=== PATIENT | female | born 1955 | race Caucasian/White ===

== ENCOUNTER 2017-04-23 19:01 | Inpatient (IN) ==
[2017-04-23] MEDS ORDERED: 0.9 % Sodium Chloride 500 ML IVC ONE (21:49)
[2017-04-23] MEDS ORDERED: Ondansetron 4 MG/2 ML VIAL IVP PRN (22:18)
[2017-04-23] MEDS ORDERED: Naloxone 0.4 MG/ML INJ IVP PRN (22:18)
[2017-04-23] MEDS ORDERED: *HR* LORazepam 2 MG/ML VIAL IVP PRN (22:27)
[2017-04-23] MEDS ORDERED: Pantoprazole 40 MG in 0.9 % Sodium Chloride 100 ML IVC SCH (22:30)
--- NOTE | 2017-04-23 22:53 | Internal Med History&Physical ---
Date of Encounter: 04/23/17 Time of Encounter: 22:15 Assessment and Plan (1) UGI bleed Current visit: Yes Status: Acute 1. [facility] 2. Will order STAT labs including CBC, coags, chemistries, blood culture, and type and cross. 3. Will transfuse another two units PRBC's and monitor H/H frequently. 4. Will start Protonix gtt. I have a high index of suspicion for ulcer given her chronic use of ASA and Plavix. I have a lower suspicion for variceal bleed. 5. Consult Dr. Goldstein for endoscopy -- already notified and discussed with him. 6. In the event she becomes unstable hemodynamically and/or exhibits further significant bleed, will intubate if necessary (airway protection) and transfer to ICU. However, at the moment, she appears stable. 7. Will start IV antibiotics to cover GI garrett. (2) Acute blood loss anemia Current visit: Yes Status: Acute 1. Supportive measures as above including transfusion of blood products, IVF, protonix drip, frequent monitoring of H/H. (3) Alcohol abuse Current visit: Yes Status: Chronic 1. Discrepancy between patient's and daughter's report of alcohol consumption. 2. Will place on CIWA protocol and start MVI, Folate, and Thiamine in IVF daily. (4) Hypertension Current visit: Yes Status: Chronic 1. Hold home meds for now as she had some hypotension prior to transfer. 2. Resume home meds when clinically appropriate. Qualifiers: Hypertension type: essential hypertension Qualified Code(s): I10 - Essential (primary) hypertension (5) DVT prophylaxis Current visit: Yes Status: Acute 1. EPCD's. Internal Medicine - H&P: HPI Chief complaint: transfer from [facility]; GI bleed Admitted From: Hospital to Hospital Transfer Plans for Post Hospital Care: Home History of present illness: Ms. Moyer is a 61 year old female who was transferred here from [facility] in [place]. She presented to the ER there with complaints of hematemesis and melena. She had some borderline hypotension and tachycardia. Labs revealed patient to have a hemoglobin of 7.1 whereas it was 14 in August of this year. She received 2 units of blood transfusion by the time she arrived here at [facility]. Upon my assessment of the patient, she is tachycardic with a heart rate of about 105. Blood pressure is currently 104/50. She is alert and oriented and provides history. Her and 2 daughters are present and confirm history as well. Patient developed hematemesis 2-3 days ago. She has been having melena ever since. She has never had an ulcer before. She has never had any upper endoscopy. According to patient, she drinks about 1-2 beers per day. However, her daughter states she drinks much more than that. She has never been diagnosed with cirrhosis before and has no history of esophageal varices. She did have a CT scan of her abdomen at [facility], and there was no mention of cirrhosis findings of the liver. She denies any excessive NSAID use. However, she has been on aspirin and Plavix for over 10 years due to a renal artery stent she had placed. She feels a little lightheaded and dizzy, but she denies any chest pain or shortness of breath. She feels better after having received 2 units of blood prior to arrival. I discussed with patient and her family the need to closely monitor her hemodynamics, monitor her hemoglobin closely, and to transfuse her with blood products to stabilize her. In the event she develops a significant GI bleed and/or becomes hemodynamically unstable, I will transfer her to the ICU and intubate her if necessary in order to protect her airway. They all voiced understanding and agreement with the plan. Additionally, I contacted Dr. Misael Goldstein and discussed the case with him. He is on consult and will follow her with us and proceed with upper endoscopy in the appropriate setting. Past Med Surg Social Fam HX - Past Medical History Attestation: Yes The following information was validated with the patient. Source: patient, obtained from family, other ([facility]) Medical history: coronary artery disease, GERD, hypertension Psychiatric history: no psych history - Past Surgical History Surgical History: DAVI/BSO, other (Renal artery stent) - Social History Smoking Status: Former smoker Smokeless Tobacco Status: No Alcohol use: occasionally Drug use: none Current living situation: Home, With Family Activity Level: Independent ambulation Recent Out of Country Travel Within the Last 8 Weeks: No - Additional Family History Additional family history: No FH liver disease and/or ulcers Internal Medicine - H&P: Meds Amlodipine Besylate 10 mg PO DAILY 09/24/16 [History] Atorvastatin [Lipitor] 40 mg PO HS 09/24/16 [History] Cholesteral-Free 1 tab PO DAILY 09/24/16 [History] Clopidogrel [Plavix] 75 mg PO DAILY 09/24/16 [History] Cyanocobalamin (Vitamin B-12) [Vitamin B-12] 500 mcg PO DAILY 09/24/16 [History] Mv,Ca,Iron,Mn/FA/Chol/Vince/PABA [Body, Hair, Skin & Nails Cap] 1 each PO DAILY [History] [place]-3/Dha/Epa/Fish Oil [Fish Oil 1,000 mg Softgel] 1 each PO DAILY 09/24/16 [ History] 3 Allergy/AdvReac Type Severity Reaction Status Date / Time No Known Allergies Allergy Verified 09/24/16 10:19 - Constitutional Constitutional: no chills, no fever(s), no night sweats - EENT Eyes: no blurry vision, no change in vision Ears: no ear pain, no tinnitus Nose, mouth and throat: no nasal congestion, no sinus pressure, no sore throat - Cardiovascular Cardiovascular ROS IM: lightheadedness, no chest pain, no diaphoresis, no dyspnea, no syncope - Respiratory Respiratory: no cough, no dyspnea, no hemoptysis, no chest congestion - Gastrointestinal Gastrointestinal: hematemesis, melena, nausea, vomiting, no abdominal pain, no diarrhea, no dysphagia, no heartburn, no hematochezia - Genitourinary Genitourinary: no dysuria, no flank pain, no hematuria - Musculoskeletal Musculoskeletal ROS IM: no arthralgias, no back pain - Integumentary Integumentary IM: no rash, no jaundice - Neurological Neurological ROS: dizziness, no confusion, no convulsions, no focal weakness - Psychiatric Psychiatric: no anxiety, no depression - Endocrine Endocrine IM: no polydipsia, no polyuria - Hematologic/Lymphatic Hematologic/Lymphatic: no easy bruising, no lymphadenopathy - Allergic/Immunologic Allergic/Immunologic: no wheezing, no GI upset with certain foods - Constitutional Vitals: Temp Pulse Resp BP Pulse Ox 98.4 F 99 17 85/64 97 04/23/17 21:29 04/23/17 21:29 04/23/17 21:29 04/23/17 21:29 04/23/17 21:29 General appearance: Present: cooperative, mild distress (mildly light headed), A &O X 3, pleasant - Head Head exam: Present: atraumatic, normal inspection - Expanded Head Exam Head exam expanded: Absent: abrasion, contusion, general tenderness - Eye Eye exam: Present: EOMI, normal appearance, PERRL. Absent: scleral icterus Pupils: Present: normal accommodation - ENT ENT exam: Present: mucous membranes dry, normal exam - Neck Neck exam general surgery: Present: normal inspection, supple. Absent: full ROM , tenderness - Expanded Neck Exam Neck exam: Absent: carotid bruit - Respiratory Respiratory exam: Present: CTAB. Absent: rales, rhonchi, wheezes - Cardiovascular Cardiovascular exam: Present: RRR, +S1, +S2, tachycardia (HR 105). Absent: diastolic murmur, systolic murmur - GI/Abdominal GI/Abdominal exam: Present: soft. Absent: guarding, hepatomegaly, mass, rebound , splenomegaly, tenderness - Extremities Exam Extremities exam: Present: full ROM, warm, radial pulses palpable and symmetrical. Absent: calf tenderness, normal capillary refill (delayed, roughly 3-4 seconds), pedal edema - Back Exam Back exam: Absent: CVA tenderness (L), CVA tenderness (R) - Neurological Exam Neurological exam: Present: alert, CN II-XII intact, oriented X3, no focal deficits, strengths equal and symetr throughout - Psychiatric Psychiatric exam: Present: flat affect. Absent: anxious - Skin Skin exam: Present: dry, warm. Absent: rash (pink and warm; mildly delayed cap refill) Internal Med - H&P Results - Labs Labs: Labs from [facility] include the following: Sodium 142 Potassium 3.6 Chloride 106 CO2 23 BUN 31 Glucose 125 Creatinine 0.93 Total bilirubin 0.3 AST 21 ALT 29 WBC 12.0 Hemoglobin 7.2 Hematocrit 20.8 Platelet count 372 INR 1.15 PTT 20.4 EKG shows sinus tachycardia with some slight ST depression anterolaterally
[2017-04-23 22:59] LABS: Basophils % 0.2 %; Eosinophils % 0.4 %; Hematocrit 19.2 % (35.3-44.9); Hemoglobin 6.5 g/dL (11.5-15.4); Immature Granulocytes % 0.9 % (0-4); Lymphocytes # 2.3 K/mcL (0.6-4.6); Lymphocytes % 26.8 %; Mean Corpuscular HGB Conc 33.9 g/dL (31.6-35.5); Mean Corpuscular Hemoglobin 31.4 pg (28.0-33.3); Mean Corpuscular Volume 92.8 fL (83.0-100.0); Monocytes # 0.7 K/mcL (0.0-1.3); Monocytes % 8.5 %; Neutrophils # 5.4 K/mcL (1.6-8.9); Nucleated Red Blood Cells 0.7 /100 WBC (0); Platelet Count 187 K/mcL (140-400); Red Blood Count 2.07 M/mcL (3.82-4.97); Red Cell Distribution Width 13.2 % (11.5-14.5); Segmented Neutrophils % 63.2 %
[2017-04-23 23:11] LABS: INR 1.2; Prothrombin Time 12.7 Seconds (9.4-12.1)
[2017-04-23 23:12] LABS: Alanine Aminotransferase 15 Units/L (0-55); Albumin 2.4 g/dL (3.5-5.0); Albumin/Globulin Ratio 1.4 (1.1-2.2); Alkaline Phosphatase 52 Units/L (38-126); Aspartate Amino Transferase 18 Units/L (5-34); BUN/Creatinine Ratio 51 (6-26); Bilirubin,Total 0.2 mg/dL (0.2-1.2); Blood Urea Nitrogen 33 mg/dL (7-20); Calcium 7.1 mg/dL (8.6-10.8); Carbon Dioxide 20 mEq/L (19-29); Chloride 117 mEq/L (98-109); Globulin 1.7 g/dL (2.4-3.5); Glucose 102 mg/dL (70-99); Magnesium 1.2 mg/dL (1.6-2.6); Osmolality,Calculated 303 (280-300); Potassium 3.8 mEq/L (3.5-4.5); Sodium 143 mEq/L (136-145); Total Protein 4.1 g/dL (6.0-8.3); eGFR For African Americans > 60 (> 60); eGFR For Non-African Americans > 60 (> 60)
[2017-04-23 23:13] LABS: Activated Partial Thrombo Time 23.2 Seconds (26.0-36.0)
[2017-04-23] MEDS: MetroNIDAZOLE 500 MG/100 ML 500 MG/100 ML BAG IVPB SCH (23:38)
[2017-04-23] MEDS: Pantoprazole 80 MG in 0.9 % Sodium Chloride 250 ML IVC SCH (23:38)
[2017-04-24] MEDS ORDERED: 0.9 % Sodium Chloride 250 ML ONE ×4 (00:03→13:35)
--- NOTE | 2017-04-24 00:08 | Event Note ---
Date of Encounter: 04/24/17 Time of Encounter: 00:05 Hemoglobin dropped to 6.5 from 7.2 despite receiving 2 units PRBC's. Patient denies any further melena, hematochezia, or hematemsis. Her BP is now 105/55. HR 107. She has a benign abdominal exam. I called and informed Dr. Goldstein. I am transferring patient to ICU for closer monitoring. I called and discussed with ICU nursing staff as well.
--- NOTE | 2017-04-24 00:54 | General Surgery Consult Note ---
Date of Encounter: 04/24/17 Time of Encounter: 00:52 Assessment and Plan (1) Lower GI bleed Current Visit: Yes Status: Acute 61F with acute blood loss anemia 2/2 LGIB; HALFWAY of LGIB is UGIB; still symptomatic, but BP, HR are responding - NPO - IVF - transfuse per primary team - consent for EGD - if negative, then will plan for colonoscopy and/or angio by IR - cont to trend h/h - [place] to track UOP - protonix gtt - hold anticoagulants (2) Acute blood loss anemia Current Visit: Yes Status: Acute see above trend h/h transfuse as needed (3) UGI bleed Current Visit: Yes Status: Acute see above History of Present Illness Consult date: 04/24/17 Reason for consult: other (lower GI bleed) Requesting physician: Richard Parra History of present illness: 61F h/o EtOH abuse who was transferred here from [facility] in [place]. She presented to the ER there with complaints of hematemesis (2-3 days prior to evaluation) and melena for the past 2-3 days. No repots of prior ulcers or diagnosis of cirrhosis, esophageal or gastric varices. he has been on aspirin and Plavix for over 10 years due to a renal artery stent she had placed. According to patient, she drinks about 1-2 beers per day. However, her daughter states she drinks much more than that. She has never had an EGD before. Most recent colonoscopy did not reveal any diverticulosis or masses or polyps. She is currently unstable, on her 3rd PRBC, and most recent hgb is 6.5. Surgery was consulted for management recommendations. Past Med Surg Social Fam HX - Past Medical History Medical history: coronary artery disease, GERD, hypertension Psychiatric history: no psych history - Past Surgical History Surgical History: DAVI/BSO, other (Renal artery stent) - Social History Smoking Status: Former smoker Smokeless Tobacco Status: No Alcohol use: occasionally Drug use: none - Additional Family History Additional family history: non contributor Medications and Allergies Amlodipine Besylate 10 mg PO DAILY 09/24/16 [History] Atorvastatin [Lipitor] 40 mg PO HS 09/24/16 [History] Cholesteral-Free 1 tab PO DAILY 09/24/16 [History] Clopidogrel [Plavix] 75 mg PO DAILY 09/24/16 [History] Cyanocobalamin (Vitamin B-12) [Vitamin B-12] 500 mcg PO DAILY 09/24/16 [History] Mv,Ca,Iron,Mn/FA/Chol/Vince/PABA [Body, Hair, Skin & Nails Cap] 1 each PO DAILY [History] [place]-3/Dha/Epa/Fish Oil [Fish Oil 1,000 mg Softgel] 1 each PO DAILY 09/24/16 [ History] 3 Allergy/AdvReac Type Severity Reaction Status Date / Time No Known Allergies Allergy Verified 09/24/16 10:19 Review of Systems All systems PM: A 10-system review of systems was performed and is negative for pertinent findings except as documented above in the HPI. General Surgery Exam Initial Vital Signs Temp Pulse Resp BP 98.8 F 113 14 91/52 04/23/17 00:00 04/23/17 00:00 04/23/17 00:00 04/23/17 00:00 - General physical appearance well developed, well nourished, no distress - Eyes pale - ENT normocephalic - Respiratory normal expansion, normal respiratory effort - Cardiovascular Cardiovascular exam: Present: RRR, tachycardia - Abdomen Abdomen general surgery: Present: bowel sounds present, soft, non tender, tender (non peritoneal, only mildly tender palpation) Abdominal Tenderness: Present: suprapubic Hernia: Present: none - Rectum Rectum: Present: normal sphincter tone, no hemorrhoids, no tenderness, no masses , other (dark residue; no bright red blood) - Integumentary Integumentary general surgery: Present: warm and dry - Neurologic Present: CN 2-12 grossly intact - Psychiatric Psychiatric general surgery: Present: A&Ox3 Exam Initial Vital Signs Temp Pulse Resp BP 98.8 F 113 14 91/52 04/23/17 00:00 04/23/17 00:00 04/23/17 00:00 04/23/17 00:00 Results - Labs 04/23/17 22:45 04/23/17 22:45 Abnormal lab results RBC 2.07 M/mcL (3.82-4.97) L 04/23/17 22:45 Hgb 6.5 g/dL (11.5-15.4) L 04/23/17 22:45 Hct 19.2 % (35.3-44.9) L 04/23/17 22:45 MPV 9.0 fL (9.4-12.4) L 04/23/17 22:45 Nucleated RBCs/100 WBC 0.7 /100 WBC (0) H 04/23/17 22:45 PT 12.7 Seconds (9.4-12.1) H 04/23/17 22:45 APTT 23.2 Seconds (26.0-36.0) L 04/23/17 22:45 Chloride 117 mEq/L (98-109) H 04/23/17 22:45 BUN 33 mg/dL (7-20) H 04/23/17 22:45 BUN/Creatinine Ratio 51 (6-26) H 04/23/17 22:45 Glucose 102 mg/dL (70-99) H 04/23/17 22:45 Calculated Osmolality 303 (280-300) H 04/23/17 22:45 Calcium 7.1 mg/dL (8.6-10.8) L 04/23/17 22:45 Magnesium 1.2 mg/dL (1.6-2.6) L 04/23/17 22:45 Serum Total Protein 4.1 g/dL (6.0-8.3) L 04/23/17 22:45 Albumin 2.4 g/dL (3.5-5.0) L 04/23/17 22:45 Globulin 1.7 g/dL (2.4-3.5) L 04/23/17 22:45 Diabetes panel 04/23/17 Range/Units 22:45 Sodium 143 (136-145) mEq/L Potassium 3.8 (3.5-4.5) mEq/L Chloride 117 H (98-109) mEq/L Carbon Dioxide 20 (19-29) mEq/L BUN 33 H (7-20) mg/dL Creatinine 0.65 (0.57-1.11) mg/dL Glucose 102 H (70-99) mg/dL Calcium 7.1 L (8.6-10.8) mg/dL AST 18 (5-34) Units/L ALT 15 (0-55) Units/L Alkaline Phosphatase 52 (38-126) Units/L Albumin 2.4 L (3.5-5.0) g/dL Calcium panel 04/23/17 Range/Units 22:45 Calcium 7.1 L (8.6-10.8) mg/dL Albumin 2.4 L (3.5-5.0) g/dL Pituitary panel 04/23/17 Range/Units 22:45 Sodium 143 (136-145) mEq/L Potassium 3.8 (3.5-4.5) mEq/L Chloride 117 H (98-109) mEq/L Carbon Dioxide 20 (19-29) mEq/L BUN 33 H (7-20) mg/dL Creatinine 0.65 (0.57-1.11) mg/dL Glucose 102 H (70-99) mg/dL Calcium 7.1 L (8.6-10.8) mg/dL Adrenal panel 04/23/17 Range/Units 22:45 Sodium 143 (136-145) mEq/L Potassium 3.8 (3.5-4.5) mEq/L Chloride 117 H (98-109) mEq/L Carbon Dioxide 20 (19-29) mEq/L BUN 33 H (7-20) mg/dL Creatinine 0.65 (0.57-1.11) mg/dL Glucose 102 H (70-99) mg/dL Calcium 7.1 L (8.6-10.8) mg/dL Total Bilirubin 0.2 (0.2-1.2) mg/dL AST 18 (5-34) Units/L ALT 15 (0-55) Units/L Alkaline Phosphatase 52 (38-126) Units/L Albumin 2.4 L (3.5-5.0) g/dL All other labs normal. Consult Discharge Plan - Plan Referrals: Miri Lo, HERNANDO [Primary Care Provider] -
[2017-04-24] MEDS ORDERED: *HR* Midazolam HCl 5 MG/5 ML VIAL IVP ONE ×2 (01:20→01:40)
[2017-04-24] MEDS ORDERED: *HR* FentaNYL (PF) 100 MCG/2 ML VIAL ONE ×2 (01:21→01:29)
[2017-04-24] MEDS ORDERED: *HR* FentaNYL (PF) 100 MCG/2 ML VIAL IVP ONE (01:40)
--- NOTE | 2017-04-24 02:27 | Pre-Sedation Evaluation ---
Pre-sedation evaluation - Pre-sedation checklist Date of procedure: 04/24/17 Procedure: egd Recent Vitals: Last Vital Signs Temp 98.9 F 04/24/17 00:34 Pulse 111 04/24/17 02:00 Resp 12 04/24/17 02:00 BP 102/57 04/24/17 02:00 Pulse Ox 96 04/24/17 02:00 H&P (including ROS) documented in medical record: Yes Previous reaction to sedatives/anesthetics: Unknown Dietary Status: NPO 6 hours prior to procedure Dentition: No loose teeth or bridges Possible difficult airway: No ASA Classification *see protocol: CLASS III-Severe systemic disease
--- NOTE | 2017-04-24 02:32 | General Surgery Consult Note ---
Date of Encounter: 04/24/17 Time of Encounter: 02:30 Assessment and Plan (1) Lower GI bleed Current Visit: Yes Status: Acute (2) Acute blood loss anemia Current Visit: Yes Status: Acute (3) UGI bleed Current Visit: Yes Status: Acute Past Med Surg Social Fam HX - Past Medical History Medical history: coronary artery disease, GERD, hypertension Psychiatric history: no psych history - Past Surgical History Surgical History: DAVI/BSO, other (Renal artery stent) - Social History Smoking Status: Former smoker Smokeless Tobacco Status: No Alcohol use: occasionally Drug use: none Medications and Allergies Amlodipine Besylate 10 mg PO DAILY 09/24/16 [History] Atorvastatin [Lipitor] 40 mg PO HS 09/24/16 [History] Cholesteral-Free 1 tab PO DAILY 09/24/16 [History] Clopidogrel [Plavix] 75 mg PO DAILY 09/24/16 [History] Cyanocobalamin (Vitamin B-12) [Vitamin B-12] 500 mcg PO DAILY 09/24/16 [History] Mv,Ca,Iron,Mn/FA/Chol/Vince/PABA [Body, Hair, Skin & Nails Cap] 1 each PO DAILY [History] [place]-3/Dha/Epa/Fish Oil [Fish Oil 1,000 mg Softgel] 1 each PO DAILY 09/24/16 [ History] 3 Allergy/AdvReac Type Severity Reaction Status Date / Time No Known Allergies Allergy Verified 09/24/16 10:19 Review of Systems All systems PM: A 10-system review of systems was performed and is negative for pertinent findings except as documented above in the HPI. General Surgery Exam Initial Vital Signs Temp Pulse Resp BP 98.8 F 113 14 91/52 04/23/17 00:00 04/23/17 00:00 04/23/17 00:00 04/23/17 00:00 Exam Initial Vital Signs Temp Pulse Resp BP 98.8 F 113 14 91/52 04/23/17 00:00 04/23/17 00:00 04/23/17 00:00 04/23/17 00:00 Results - Labs 04/23/17 22:45 04/23/17 22:45 Abnormal lab results RBC 2.07 M/mcL (3.82-4.97) L 04/23/17 22:45 Hgb 6.5 g/dL (11.5-15.4) L 04/23/17 22:45 Hct 19.2 % (35.3-44.9) L 04/23/17 22:45 MPV 9.0 fL (9.4-12.4) L 04/23/17 22:45 Nucleated RBCs/100 WBC 0.7 /100 WBC (0) H 04/23/17 22:45 PT 12.7 Seconds (9.4-12.1) H 04/23/17 22:45 APTT 23.2 Seconds (26.0-36.0) L 04/23/17 22:45 Chloride 117 mEq/L (98-109) H 04/23/17 22:45 BUN 33 mg/dL (7-20) H 04/23/17 22:45 BUN/Creatinine Ratio 51 (6-26) H 04/23/17 22:45 Glucose 102 mg/dL (70-99) H 04/23/17 22:45 POC Glucose 103 (58-89) H 04/24/17 00:58 Calculated Osmolality 303 (280-300) H 04/23/17 22:45 Calcium 7.1 mg/dL (8.6-10.8) L 04/23/17 22:45 Magnesium 1.2 mg/dL (1.6-2.6) L 04/23/17 22:45 Serum Total Protein 4.1 g/dL (6.0-8.3) L 04/23/17 22:45 Albumin 2.4 g/dL (3.5-5.0) L 04/23/17 22:45 Globulin 1.7 g/dL (2.4-3.5) L 04/23/17 22:45 Diabetes panel 04/23/17 Range/Units 22:45 Sodium 143 (136-145) mEq/L Potassium 3.8 (3.5-4.5) mEq/L Chloride 117 H (98-109) mEq/L Carbon Dioxide 20 (19-29) mEq/L BUN 33 H (7-20) mg/dL Creatinine 0.65 (0.57-1.11) mg/dL Glucose 102 H (70-99) mg/dL Calcium 7.1 L (8.6-10.8) mg/dL AST 18 (5-34) Units/L ALT 15 (0-55) Units/L Alkaline Phosphatase 52 (38-126) Units/L Albumin 2.4 L (3.5-5.0) g/dL Calcium panel 04/23/17 Range/Units 22:45 Calcium 7.1 L (8.6-10.8) mg/dL Albumin 2.4 L (3.5-5.0) g/dL Pituitary panel 04/23/17 Range/Units 22:45 Sodium 143 (136-145) mEq/L Potassium 3.8 (3.5-4.5) mEq/L Chloride 117 H (98-109) mEq/L Carbon Dioxide 20 (19-29) mEq/L BUN 33 H (7-20) mg/dL Creatinine 0.65 (0.57-1.11) mg/dL Glucose 102 H (70-99) mg/dL Calcium 7.1 L (8.6-10.8) mg/dL Adrenal panel 04/23/17 Range/Units 22:45 Sodium 143 (136-145) mEq/L Potassium 3.8 (3.5-4.5) mEq/L Chloride 117 H (98-109) mEq/L Carbon Dioxide 20 (19-29) mEq/L BUN 33 H (7-20) mg/dL Creatinine 0.65 (0.57-1.11) mg/dL Glucose 102 H (70-99) mg/dL Calcium 7.1 L (8.6-10.8) mg/dL Total Bilirubin 0.2 (0.2-1.2) mg/dL AST 18 (5-34) Units/L ALT 15 (0-55) Units/L Alkaline Phosphatase 52 (38-126) Units/L Albumin 2.4 L (3.5-5.0) g/dL All other labs normal. Procedures: General Surgery - Central Line Placement Left SC Consent obtained: written consent (from daughters) Time out performed: Yes Patient placed on monitor/pulse ox: Yes prep: mask, gown, gloves Central line prep: Chlorhexidine scrub, sterile drapes applied Local anesthesia used: Lidocaine 1% Ultrasound used for placement: No Technique: Seldinger Central line lumen inserted: triple Post Procedure: sutured in place, good blood return, all ports aspirated, flushed, capped, sterile dressing applied, infection control done at entry site Post procedure x-ray: tip of catheter in good position, no pneumothorax seen Patient tolerated procedure: well Complications: none Consult Discharge Plan - Plan Referrals: Miri Lo CNP [Primary Care Provider] -
[2017-04-24] MEDS: Pantoprazole 80 MG in 0.9 % Sodium Chloride 250 ML IVC SCH ×2 (06:02→17:48)
[2017-04-24 06:06] LABS: Basophils % 0.5 %; Eosinophils # 0.1 K/mcL (0.0-0.6); Eosinophils % 1.6 %; Hematocrit 23.1 % (35.3-44.9); Hemoglobin 7.7 g/dL (11.5-15.4); Immature Granulocytes % 0.9 % (0-4); Lymphocytes # 1.7 K/mcL (0.6-4.6); Lymphocytes % 20.5 %; Mean Corpuscular HGB Conc 33.3 g/dL (31.6-35.5); Mean Corpuscular Volume 89.9 fL (83.0-100.0); Mean Platelet Volume 9.2 fL (9.4-12.4); Monocytes # 0.8 K/mcL (0.0-1.3); Monocytes % 9.8 %; Neutrophils # 5.7 K/mcL (1.6-8.9); Nucleated Red Blood Cells 0.9 /100 WBC (0); Platelet Count 142 K/mcL (140-400); Red Blood Count 2.57 M/mcL (3.82-4.97); Red Cell Distribution Width 14.3 % (11.5-14.5); Segmented Neutrophils % 66.7 %
[2017-04-24] MEDS: MetroNIDAZOLE 500 MG/100 ML 500 MG/100 ML BAG IVPB SCH (07:44)
--- NOTE | 2017-04-24 08:30 | Internal Med Progress Note ---
Date of Encounter: 04/24/17 Time of Encounter: 08:26 - Assessment and plan (1) UGI bleed Current Visit: Yes Status: Acute Assessment and plan: s/p EGD showed Duodenal ulcer will f/u on biopsy Held ASA and Plavix for now Cont Protonix gtt for another day started on PO Carafate cont close monitoring of H /H Surgery Dr. Goldstein on board No colonoscopy at this point Reviewed CT of abd / Pelvis from [facility].. No signs of Colitis / infections So will stop abx Medically stable to transfer to [facility] (2) Duodenal ulcer Current Visit: Yes Status: Acute Assessment and plan: on PPI GTT ON Carafate (3) Acute blood loss anemia Current Visit: Yes Status: Acute Assessment and plan: Hb still @ 7.7 after 4 U PRBC will give another unit cont close monitoring check Iron studies (4) Alcohol dependence Current Visit: Yes Status: Acute Assessment and plan: Cont close monitoring on CIWA Ativan PRN Thiamine / Folic daily Qualifiers: Qualified Code(s): F10.20 - Alcohol dependence, uncomplicated (5) Hypertension Current Visit: Yes Status: Chronic Assessment and plan: resume home medications Qualifiers: Hypertension type: essential hypertension Qualified Code(s): I10 - Essential (primary) hypertension (6) DVT prophylaxis Current Visit: Yes Status: Acute Assessment and plan: on SCD's only - Subjective Interval history: Ms. Moyer is a 61 year old female with known chronic alcohol dependence, CAD , GERD, HTN, takes ASA and Plavix for renal artery stent now she presented to [facility] in [place] with Melena and dark colored stools. She did go for emergent EGD y/d which showed non bleeding duodenal ulcer with adherent clot. She recieved 4 U PRBC sof ar, Hb still @ 7.7 Still c/o feelng weak and lethargic . Denied any CP / SOB. c/o Light headedness and dizzy. No abd pain. No BM since last night - Constitutional Vitals: Temp Pulse Resp BP Pulse Ox 97.9 F 101 18 93/59 95 04/24/17 07:31 04/24/17 07:00 04/24/17 07:00 04/24/17 07:00 04/24/17 07:00 General appearance: Present: cooperative, A&O X 3, pleasant - Head Head exam: Present: atraumatic, normal inspection - Neck Neck exam general surgery: Present: supple - Respiratory Respiratory exam: Present: decreased breath sounds. Absent: rales, respiratory distress, rhonchi, wheezes - Cardiovascular Cardiovascular exam: Present: RRR, +S1, +S2 - GI/Abdominal GI/Abdominal exam: Present: hypoactive bowel sounds, soft. Absent: distended, rebound, rigid, tenderness - Extremities Exam Extremities exam: Absent: calf tenderness, pedal edema, tenderness - Back Exam Back exam: Absent: CVA tenderness (L), CVA tenderness (R) - Neurological Exam Neurological exam: Present: alert, oriented X3 - Psychiatric Psychiatric exam: Present: depressed Internal Medicine: Result - Labs CBC & Chem 7: 04/24/17 05:50 04/23/17 22:45 Labs: Short CBC 04/23/17 04/24/17 Range/Units 22:45 05:50 WBC 8.6 8.5 (4.3-11.1) K/mcL Hgb 6.5 L 7.7 L (11.5-15.4) g/dL Hct 19.2 L 23.1 L (35.3-44.9) % Plt Count 187 142 (140-400) K/mcL Neutrophils # 5.4 5.7 (1.6-8.9) K/mcL BMP 04/23/17 22:45 Sodium 143 Potassium 3.8 Chloride 117 H Carbon Dioxide 20 BUN 33 H Creatinine 0.65 Glucose 102 H Calcium 7.1 L Liver Function 04/23/17 Range/Units 22:45 Total Bilirubin 0.2 (0.2-1.2) mg/dL AST 18 (5-34) Units/L ALT 15 (0-55) Units/L Alkaline Phosphatase 52 (38-126) Units/L Albumin 2.4 L (3.5-5.0) g/dL - ABG Interpretation ABG results: PT/INR, D-dimer PT 12.7 Seconds (9.4-12.1) H 04/23/17 22:45 - Impressions Impressions Chest X-Ray 04/24/17 02:19 IMPRESSION: Right subclavian central line in place, tip in right atrium, could be withdrawn 3 cm. D/ / Adilson Prado MD / Adilson Prado MD Interpreting Provider: Adilson Prado MD Consult Discharge Plan - Plan Referrals: Miri Lo CNP [Primary Care Provider] -
[2017-04-24] MEDS: Sucralfate 1 GM TABLET PO SCH ×4 (09:24→21:17)
--- NOTE | 2017-04-24 11:43 | General Surgery Progress Note ---
Date of Encounter: 04/24/17 Time of Encounter: 11:41 - Assessment and Plan (1) Duodenal ulcer with hemorrhage Current Visit: Yes Status: Acute 61F with acute blood loss anemia 2/2 bleeding duodenal ulcer visualized on EGD ; adherent clot, non oozing/bleeding no intervention performed; currently stablizing with hct, HR, BP wnl; - trend h/h - transfuse PRN - keep in ICU until she is stable protonix gtt treat propylactically for H. pylori - diet per primary team - no acute surgery at present (2) Lower GI bleed Current Visit: Yes Status: Acute 61F with acute blood loss anemia 2/2 bleeding duodenal ulcer visualized on EGD ; adherent clot, non oozing/bleeding no intervention performed; currently stablizing with hct, HR, BP wnl; - trend h/h - transfuse PRN - keep in ICU until she is stable - no acute surgery at present (3) Acute blood loss anemia Current Visit: Yes Status: Acute see above trend h/h transfuse as needed (4) UGI bleed Current Visit: Yes Status: Acute see above Subjective Patient reports: no new complaints, feels better Objective Vital Signs - Last 8 Hours Temp Pulse Resp BP Pulse Ox 04/24/17 10:29 99.0 F 110 16 94/62 97 04/24/17 10:14 98.5 F 101 16 95/47 97 04/24/17 10:00 103 16 95/47 96 04/24/17 09:00 101 16 97/45 95 04/24/17 08:00 103 16 100/47 95 04/24/17 07:31 97.9 F 04/24/17 07:00 101 18 93/59 95 04/24/17 06:00 99 13 103/67 96 04/24/17 04:56 98 14 95/58 99 04/24/17 03:45 98.7 F 103 12 102/54 98 Intake and Output 04/23/17 04/24/17 04/24/17 23:59 07:59 15:59 Intake Total 0 / 0 1250 / 1250 100 / 100 Output Total 0 / 0 225 / 225 Balance 0 / 0 1025 / 1025 100 / 100 Intake: IV Fluids 550 / 550 100 / 100 Protonix 80 MG In 0.9 % Sodium 250 / 250 Chloride 250 ML @ 8 MG/HR 25 mls/hr IVC .Q10H [facility] Rx#: [id number] Cipro Premix 400 MG/200 ML 400 200 / 200 mg In 200 ml @ 200 mls/hr IVPB Q12HR [facility] Rx#:[id number] Flagyl Premix 500 MG/100 ML 500 100 / 100 100 / 100 mg In 100 ml @ 100 mls/hr IVPB Q8HR [facility] Rx#:[id number] Oral 0 / 0 Blood Product 700 / 700 0 / 0 Rbcs Leuko Poor As-1 Unit 350 / 350 [id number] Rbcs Leuko Poor As-1 Unit 350 / 350 [id number] Rbcs Leuko Poor As-1 Unit 0 / 0 [id number] Output: Urine 0 / 0 200 / 200 Urethral ([place]) 200 / 200 Catheter 25 / 25 Other: Stool Size Small Copious Stool Consistency liquid loose Stool Color Green Black Black # Bowel Movements 1 Weight 71.1 kg - General physical appearance well developed, well nourished - Eyes normal ocular movement - Respiratory normal expansion, normal respiratory effort - Cardiovascular Cardiovascular exam: Present: RRR - Abdomen Abdomen: Present: soft, non tender - Neurologic CN 2-12 grossly intact - Psychiatric oriented to time, oriented to person, oriented to place - Labs 04/24/17 05:50 04/23/17 22:45 Diabetes panel 04/23/17 Range/Units 22:45 Sodium 143 (136-145) mEq/L Potassium 3.8 (3.5-4.5) mEq/L Chloride 117 H (98-109) mEq/L Carbon Dioxide 20 (19-29) mEq/L BUN 33 H (7-20) mg/dL Creatinine 0.65 (0.57-1.11) mg/dL Glucose 102 H (70-99) mg/dL Calcium 7.1 L (8.6-10.8) mg/dL AST 18 (5-34) Units/L ALT 15 (0-55) Units/L Alkaline Phosphatase 52 (38-126) Units/L Albumin 2.4 L (3.5-5.0) g/dL Calcium panel 04/23/17 Range/Units 22:45 Calcium 7.1 L (8.6-10.8) mg/dL Albumin 2.4 L (3.5-5.0) g/dL Pituitary panel 04/23/17 Range/Units 22:45 Sodium 143 (136-145) mEq/L Potassium 3.8 (3.5-4.5) mEq/L Chloride 117 H (98-109) mEq/L Carbon Dioxide 20 (19-29) mEq/L BUN 33 H (7-20) mg/dL Creatinine 0.65 (0.57-1.11) mg/dL Glucose 102 H (70-99) mg/dL Calcium 7.1 L (8.6-10.8) mg/dL Adrenal panel 04/23/17 Range/Units 22:45 Sodium 143 (136-145) mEq/L Potassium 3.8 (3.5-4.5) mEq/L Chloride 117 H (98-109) mEq/L Carbon Dioxide 20 (19-29) mEq/L BUN 33 H (7-20) mg/dL Creatinine 0.65 (0.57-1.11) mg/dL Glucose 102 H (70-99) mg/dL Calcium 7.1 L (8.6-10.8) mg/dL Total Bilirubin 0.2 (0.2-1.2) mg/dL AST 18 (5-34) Units/L ALT 15 (0-55) Units/L Alkaline Phosphatase 52 (38-126) Units/L Albumin 2.4 L (3.5-5.0) g/dL Consult Discharge Plan - Plan Referrals: Miri Lo, DIRECTOR OF RECREATION THERAPY [Primary Care Provider] -
[2017-04-24] MEDS: Thiamine (B-1) 100 MG, Folic Acid 1 MG, MVI, adult with vitamin K 10 ML in 0.9 % Sodi... IVPB SCH (17:12)
[2017-04-24 22:41] LABS: Hematocrit 25.9 % (35.3-44.9); Hemoglobin 8.7 g/dL (11.5-15.4)
[2017-04-25] MEDS: Pantoprazole 80 MG in 0.9 % Sodium Chloride 250 ML IVC SCH (04:18)
[2017-04-25 05:32] LABS: Basophils % 0.6 %; Eosinophils # 0.4 K/mcL (0.0-0.6); Eosinophils % 6.1 %; Hematocrit 26.2 % (35.3-44.9); Hemoglobin 8.7 g/dL (11.5-15.4); Lymphocytes # 1.9 K/mcL (0.6-4.6); Lymphocytes % 28.2 %; Mean Corpuscular HGB Conc 33.2 g/dL (31.6-35.5); Mean Corpuscular Hemoglobin 29.2 pg (28.0-33.3); Mean Corpuscular Volume 87.9 fL (83.0-100.0); Mean Platelet Volume 9.3 fL (9.4-12.4); Monocytes # 0.5 K/mcL (0.0-1.3); Monocytes % 7.3 %; Neutrophils # 3.8 K/mcL (1.6-8.9); Nucleated Red Blood Cells 0.6 /100 WBC (0); Platelet Count 140 K/mcL (140-400); Red Blood Count 2.98 M/mcL (3.82-4.97); Red Cell Distribution Width 15.5 % (11.5-14.5); Segmented Neutrophils % 56.8 %
[2017-04-25 06:58] LABS: % Iron Saturation 14 % (15-50); Iron 25 mcg/dL (50-170); Transferrin 124 mg/dL (180-382)
[2017-04-25] MEDS: Sucralfate 1 GM TABLET PO SCH ×4 (08:56→22:21)
[2017-04-25] MEDS ORDERED: 0.9 % Sodium Chloride 500 ML IVC ONE (11:16)
[2017-04-25] MEDS ORDERED: *HR* LORazepam 2 MG/ML VIAL IVP PRN (11:18)
--- NOTE | 2017-04-25 11:26 | General Surgery Progress Note ---
<Kendrick Harper - Last Filed: 04/25/17 11:34> Date of Encounter: 04/25/17 Time of Encounter: 10:15 - Assessment and Plan (1) Duodenal ulcer with hemorrhage Current Visit: Yes Status: Acute Patient initially presented to the ER with the complaint of hematemesis and melena of 3 days' duration. Upper endoscopy was performed on 04/24/17 and demonstrated the followin nonbleeding duodenal ulcer present with adherent clot. No samples were collected. Suspicious for H. pylori induced etiology. No evidence of perforation. Recommendation per Dr. Quezada: Admit to ICU for ongoing care. Plan: -Trend H&H. Patient's hemoglobin has remained stable since yesterday. -On 04/24/17, patient's hemoglobin was 8.7. -On 04/25/17, patient's hemoglobin was 8.7. -Transfuse when necessary. -Patient denies having any weakness or dizziness. -Continuous cardiac monitoring. -Treated prophylactically for H. pylori. -H. pylori antigen test has been ordered. -Diet per primary team. (2) Lower GI bleed Current Visit: Yes Status: Acute Patient presented to the hospital with the complaint of melena 3 days duration. This morning, patient states that she had one bowel movement. The same black , tarry appearance. Denies having any weakness. -Patient may need colonoscopy. -She reports her last colonoscopy was a few months ago and that no abnormalities were found. (3) Acute blood loss anemia Current Visit: Yes Status: Acute Subjective Patient reports: feels better, blood in stool Narrative: Patient was seen and examined subsequently. Patient states that she did have a bowel movement this morning. It was dark in color, similar to the black tarry stools that she has been having for the last 2-3 days. She denies having any hematemesis. She currently denies having abdominal pain. She denies fever, chills, weakness, dizziness, and lightheadedness. Objective Vital Signs - Last 8 Hours Temp Pulse Resp BP Pulse Ox 04/25/17 10:19 98.3 F 86 14 92/55 97 04/25/17 09:19 98.4 F 82 16 108/69 98 04/25/17 06:46 97.9 F 85 18 101/60 94 04/25/17 05:00 98.5 F 90 16 101/55 96 Intake and Output 04/24/17 04/25/17 04/25/17 23:59 07:59 15:59 Intake Total 1111.2 / 1111.2 250 / 250 0 / 0 Output Total 0 / 0 300 / 300 100 / 100 Balance 1111.2 / 1111.2 -50 / -50 -100 / -100 Intake: IV Fluids 761.2 / 761.2 250 / 250 Protonix 80 MG In 0.9 % Sodium 250 / 250 250 / 250 Chloride 250 ML @ 8 MG/HR 25 mls/hr IVC .Q10H [facility] Rx#: [id number] Vitamin B-1 100 MG Folvite 1 MG 511.2 / 511.2 M.v.i. Adult 10 ml In 0.9 % Sodium Chloride 500 ML @ 85.2 mls/hr IVPB DAILY@1800 [facility] Rx#: [id number] Oral 0 / 0 0 / 0 Blood Product 350 / 350 Rbcs Leuko Poor As-1 Unit 350 / 350 [id number] Output: Urine 0 / 0 300 / 300 100 / 100 Other: Meal NPO NPO Percent of Meal Consumed 0% Stool Size Small Stool Consistency soft Stool Color Dark Red Blood # Voids 1 1 # Bowel Movements 1 Blood Glucose* 89 98 98 - General physical appearance well developed, well nourished, no distress - Neck Neck exam: no masses, trachea midline, no lymphadectomy - Respiratory normal expansion, normal respiratory effort, clear to auscultation - Cardiovascular Cardiovascular exam: Present: RRR, no murmurs/rubs/gallops - Abdomen Abdomen: Present: bowel sounds present, soft, non tender - Psychiatric oriented to time, oriented to person, oriented to place, speech is normal, memory intact - Labs 04/25/17 05:24 04/23/17 22:45 Consult Discharge Plan - Plan Referrals: Miri Lo CNP [Primary Care Provider] - <Kimberlee Young - Last Filed: 04/25/17 16:59> Date of Encounter: 04/25/17 - Assessment and Plan (1) Acute blood loss anemia Current Visit: Yes Status: Acute Hb stable last 24 hrs continue to monitor (2) Duodenal ulcer with hemorrhage Current Visit: Yes Status: Acute check stool for H pylori continue PPI therapy and carafate advance diet as tolerate Subjective Narrative: patient reports no upper abdominal pain, no nausea still passing somewhat black stools tolerating clears Objective Vital Signs - Last 8 Hours Temp Pulse Resp BP Pulse Ox 04/25/17 14:55 98.4 F 91 14 107/55 100 04/25/17 10:19 98.3 F 86 14 92/55 97 04/25/17 09:19 98.4 F 82 16 108/69 98 Intake and Output 04/25/17 04/25/17 04/25/17 07:59 15:59 23:59 Intake Total 250 / 250 240 / 240 Output Total 300 / 300 100 / 100 Balance -50 / -50 140 / 140 Intake: IV Fluids 250 / 250 Protonix 80 MG In 0.9 % Sodium 250 / 250 Chloride 250 ML @ 8 MG/HR 25 mls/hr IVC .Q10H [facility] Rx#: [id number] Oral 240 / 240 Output: Urine 300 / 300 100 / 100 Other: Meal Clears Stool Size Small Stool Consistency soft Stool Color Dark Red Blood # Voids 1 1 # Bowel Movements 1 Blood Glucose* 98 98 - General physical appearance well developed, well nourished, no distress - Eyes PERRL, normal ocular movement - ENT normal mucosa, normocephalic - Neck Neck exam: trachea midline - Respiratory normal expansion, normal respiratory effort - Cardiovascular Cardiovascular exam: Present: RRR - Abdomen Abdomen: Present: soft, non tender. Absent: distended - Integumentary no rash, no growths - Neurologic CN 2-12 grossly intact - Musculoskeletal normal posture - Psychiatric oriented to time, oriented to person, oriented to place, memory intact - Labs 04/25/17 14:20 04/23/17 22:45 - Attending Attestation I examined this patient and my medical decision-making was reviewed with the Resident Physician. I agree with the documented findings, disposition and treatment plan as described except to the extent set forth below.
[2017-04-25] MEDS ORDERED: D5% in 0.45% NACL 1,000 ML IVC SCH ×2 (11:30→16:36)
[2017-04-25] MEDS: *HR* LORazepam 0.5 MG TABLET PO PRN ×2 (12:59→22:22)
[2017-04-25] MEDS: Pantoprazole 40 MG VIAL IVP SCH ×2 (12:59→17:25)
[2017-04-25 14:31] LABS: Hematocrit 24.7 % (35.3-44.9); Hemoglobin 8.3 g/dL (11.5-15.4)
--- NOTE | 2017-04-25 16:41 | Internal Med Progress Note ---
Date of Encounter: 04/25/17 Time of Encounter: 10:30 - Assessment and plan (1) UGI bleed Current Visit: Yes Status: Acute Assessment and plan: s/p EGD showed Duodenal ulcer will f/u on biopsy Held ASA and Plavix for now Switched to Protonix 40mg IV BID Cont PO Carafate cont close monitoring of H /H Started on Clear liquid diet today Surgery on board No colonoscopy at this point Reviewed CT of abd / [facility] from [facility].. No signs of Colitis / infections d/c abx (2) Duodenal ulcer Current Visit: Yes Status: Acute Assessment and plan: on PPI BID ON Carafate (3) Acute blood loss anemia Current Visit: Yes Status: Acute Assessment and plan: Hb stable @ 8.4 cont close monitoring Reviewed Iron studies. severely low Iron started on Iron supplements (4) Alcohol dependence Current Visit: Yes Status: Acute Assessment and plan: Cont close monitoring on CIWA Ativan PRN Thiamine / Folic daily Qualifiers: Qualified Code(s): F10.20 - Alcohol dependence, uncomplicated (5) Hypertension Current Visit: Yes Status: Chronic Assessment and plan: resume home medications Qualifiers: Hypertension type: essential hypertension Qualified Code(s): I10 - Essential (primary) hypertension (6) DVT prophylaxis Current Visit: Yes Status: Acute Assessment and plan: on SCD's only - Subjective Interval history: Ms. Moyer is a 61 year old female with known chronic alcohol dependence, CAD , GERD, HTN, takes ASA and Plavix for renal artery stent now she presented to [facility] in [place] with Melena and dark colored stools. She did go for emergent EGD y/d which showed non bleeding duodenal ulcer with adherent clot. She is still on NPO. c/o Light headedness and dizzy. No abd pain. Had a BM last night dark colored stools. Denied any CP / SOB - Constitutional Vitals: Temp Pulse Resp BP Pulse Ox 98.4 F 91 14 107/55 100 04/25/17 14:55 04/25/17 14:55 04/25/17 14:55 04/25/17 14:55 04/25/17 14:55 General appearance: Present: cooperative, A&O X 3, no acute distress - Head Head exam: Present: atraumatic, normal inspection - Neck Neck exam general surgery: Present: supple - Respiratory Respiratory exam: Present: decreased breath sounds. Absent: rales, respiratory distress, rhonchi, wheezes - Cardiovascular Cardiovascular exam: Present: RRR, +S1, +S2. Absent: systolic murmur - GI/Abdominal GI/Abdominal exam: Present: normal bowel sounds, soft. Absent: distended, rebound, rigid, tenderness - Extremities Exam Extremities exam: Absent: calf tenderness, pedal edema, tenderness - Back Exam Back exam: Absent: CVA tenderness (L), CVA tenderness (R) - Psychiatric Psychiatric exam: Present: normal affect, normal mood Internal Medicine: Result - Labs CBC & Chem 7: 04/25/17 14:20 04/23/17 22:45 Labs: Short CBC 04/24/17 04/25/17 04/25/17 Range/Units 22:30 05:24 14:20 WBC 6.7 (4.3-11.1) K/mcL Hgb 8.7 L 8.7 L 8.3 L (11.5-15.4) g/dL Hct 25.9 L 26.2 L 24.7 L (35.3-44.9) % Plt Count 140 (140-400) K/mcL Neutrophils # 3.8 (1.6-8.9) K/mcL - ABG Interpretation ABG results: PT/INR, D-dimer PT 12.7 Seconds (9.4-12.1) H 04/23/17 22:45 Consult Discharge Plan - Plan Referrals: Miri Lo, HOT END OPERATOR [Primary Care Provider] -
[2017-04-25] MEDS: Thiamine (B-1) 100 MG, Folic Acid 1 MG, MVI, adult with vitamin K 10 ML in 0.9 % Sodi... IVPB SCH (18:16)
[2017-04-25] MEDS ORDERED: Acetaminophen 325 MG TABLET PO PRN (18:21)
[2017-04-26 01:40] LABS: Hematocrit 24.3 % (35.3-44.9)
[2017-04-26 04:20] LABS: Basophils % 0.6 %; Eosinophils # 0.3 K/mcL (0.0-0.6); Eosinophils % 6.7 %; Hemoglobin 8.5 g/dL (11.5-15.4); Immature Granulocytes % 0.8 % (0-4); Lymphocytes # 1.6 K/mcL (0.6-4.6); Lymphocytes % 33.1 %; Mean Corpuscular Hemoglobin 30.1 pg (28.0-33.3); Mean Corpuscular Volume 88.7 fL (83.0-100.0); Mean Platelet Volume 9.3 fL (9.4-12.4); Monocytes # 0.5 K/mcL (0.0-1.3); Monocytes % 9.7 %; Neutrophils # 2.4 K/mcL (1.6-8.9); Platelet Count 155 K/mcL (140-400); Red Blood Count 2.82 M/mcL (3.82-4.97); Red Cell Distribution Width 15.3 % (11.5-14.5); Segmented Neutrophils % 49.1 %
[2017-04-26] MEDS: Pantoprazole 40 MG VIAL IVP SCH (06:03)
[2017-04-26] MEDS: Sucralfate 1 GM TABLET PO SCH (08:07)
--- NOTE | 2017-04-26 10:30 | Discharge Summary ---
Date of Encounter: 04/26/17 Time of Encounter: 10:30 - Discharge Diagnosis (1) UGI bleed Priority: Primary Status: Acute (2) Duodenal ulcer Priority: Primary Status: Acute (3) Acute blood loss anemia Priority: Primary Status: Acute (4) Alcohol dependence Priority: Secondary Status: Acute Qualifiers: Qualified Code(s): F10.20 - Alcohol dependence, uncomplicated (5) Hypertension Priority: Secondary Status: Chronic Qualifiers: Hypertension type: essential hypertension Qualified Code(s): I10 - Essential (primary) hypertension (6) DVT prophylaxis Priority: Secondary Status: Acute - Discharge Medications Prescriptions: Docusate [Colace] 100 mg PO BID PRN #60 capsule PRN Reason: Constipation Ferrous Sulfate 325 mg PO BID #60 tablet Pantoprazole Sodium 40 mg PO BID #60 tablet. Sucralfate [Carafate] 1 gm PO QIDAC #120 tablet Home Medications: Amlodipine Besylate 10 mg PO DAILY 09/24/16 [History] Atorvastatin [Lipitor] 40 mg PO HS 09/24/16 [History] Clopidogrel [Plavix] 75 mg PO DAILY 09/24/16 [History] Cyanocobalamin (Vitamin B-12) [Vitamin B-12] 500 mcg PO DAILY 09/24/16 [History] Mv,Ca,Iron,Mn/FA/Chol/Vince/PABA [Body, Hair, Skin and Nails Cap] 1 each PO DAILY 09/24/16 [History] [place]-3/Dha/Epa/Fish Oil [Fish Oil 1,000 mg Softgel] 1 each PO DAILY 09/24/16 [ History] Docusate [Colace] 100 mg PO BID PRN #60 capsule 04/26/17 [Rx] Ferrous Sulfate 325 mg PO BID #60 tablet 04/26/17 [Rx] Pantoprazole Sodium 40 mg PO BID #60 tablet. 04/26/17 [Rx] Sucralfate [Carafate] 1 gm PO QIDAC #120 tablet 04/26/17 [Rx] Allergies/Adverse Reactions: 3 Allergy/AdvReac Type Severity Reaction Status Date / Time No Known Allergies Allergy Verified 09/24/16 10:19 Procedures/tests Complete & Pending: Procedures Performed prior 72 hours Category Date Time Status ECG 12 lead ECG [ECG] Stat Y 04/23/17 22:18 Ordered Date of admission: 04/23/17 22:18 Primary care physician: Miri Lo CNP Consults: 04/23/17 22:25 Consult to Physician [CONS] Routine Consulting Provider: Misael Goldstein Reason for Consult: GI beed Time Notified: 22:25 Call Completed: Yes - Patient Status Disposition: Home, Self-Care Condition: Good Overall status at discharge: patient is back to baseline - Ambulatory Orders Ambulatory Orders: H. Pylori Antigen, Fecal Time Frame: 2 Days, Facility: [facility], Location: Lab - Discharge Instructions Follow Up With: Miri Lo CNP [Primary Care Provider] - Misael Goldstein MD [Non-Partnered Physician] - Additional Instructions: Please send stool sample for H . Pylori Please f/u with Surgery Dr. Goldstein in 2 weeks - Diet and Activity Activity: increase activity as tolerated Diet: advance to your usual diet Hospital course: Ms. Moyer is a 61 year old female with known chronic alcohol dependence, CAD , GERD, HTN, takes ASA and Plavix for renal artery stent now she presented to [facility] in [place] with Melena and dark colored stools. She did go for emergent EGD y/d which showed non bleeding duodenal ulcer with adherent clot. She received 4 U PRBC , now Hb stayed stable @ 8.5. She does not have any more dark colored stools. She is tolerating PO intake well. She does significantly low Iron levels, so started on Iron supplements here. Recommend the pt to send for stool H. Pylori as an out pt and to f/u with PCP. - Time Spent with Patient Total time spent providing and/or coordinating discharge services: - Constitutional Vitals: Temp Pulse Resp BP Pulse Ox 98.1 F 84 14 105/66 96 04/26/17 06:46 04/26/17 06:46 04/26/17 06:46 04/26/17 06:46 04/26/17 06:46 General appearance: Present: cooperative, A&O X 3, no acute distress - Head Head exam: Present: atraumatic, normal inspection - Respiratory Respiratory exam: Present: decreased breath sounds. Absent: rales, respiratory distress, rhonchi, wheezes - Cardiovascular Cardiovascular exam: Present: RRR, +S1, +S2. Absent: diastolic murmur, gallop, rubs, systolic murmur - GI/Abdominal GI/Abdominal exam: Present: normal bowel sounds, soft, no peritoneal signs. Absent: distended, tenderness - Extremities Exam Extremities exam: Absent: calf tenderness, pedal edema, tenderness - Back Exam Back exam: Absent: CVA tenderness (L), CVA tenderness (R) - Psychiatric Psychiatric exam: Present: normal affect, normal mood
[2017-04-26 10:42] VITALS: BP 99/61
== END 2017-04-26 11:53 | disposition home or self-care (01) | DRG 378 ==
LOC: 2NENU → SUATTDRO 22:18 → ICNU 04-24 01:10 → 3ANU 04-24 13:08
PROVIDERS: ADMIT Hospitalist; ATTEND Family Medicine

== ENCOUNTER 2022-02-16 14:36 | Inpatient (IN) ==
[2022-02-16 16:09] LABS: Basophils % 0.6 %; Eosinophils # 0.2 K/mcL (0.0-0.6); Eosinophils % 4.2 %; Hematocrit 31.9 % (35.3-44.9); Hemoglobin 10.4 g/dL (11.5-15.4); Immature Granulocytes % 0.8 % (0-4); Lymphocytes # 1.3 K/mcL (0.6-4.6); Lymphocytes % 25.9 %; Mean Corpuscular HGB Conc 32.6 g/dL (31.6-35.5); Mean Corpuscular Hemoglobin 32.5 pg (28.0-33.3); Mean Corpuscular Volume 99.7 fL (83.0-100.0); Mean Platelet Volume 9.1 fL (9.4-12.4); Monocytes # 0.6 K/mcL (0.0-1.3); Neutrophils # 2.8 K/mcL (1.6-8.9); Platelet Count 295 K/mcL (140-400); Red Cell Distribution Width 12.2 % (11.5-14.5); Segmented Neutrophils % 56.5 %
[2022-02-16 16:28] LABS: Alanine Aminotransferase 22 Units/L (7-52); Albumin 3.9 g/dL (3.5-5.7); Albumin/Globulin Ratio 1.4 (1.1-2.2); Alkaline Phosphatase 77 Units/L (34-104); Aspartate Amino Transferase 25 Units/L (13-39); BUN/Creatinine Ratio 8 (6-26); Bilirubin,Direct 0.1 mg/dL (0.0-0.2); Bilirubin,Indirect 0.3 mg/dL (0.0-1.0); Bilirubin,Total 0.4 mg/dL (0.3-1.0); Blood Urea Nitrogen 10 mg/dL (8-23); Calcium 8.8 mg/dL (8.6-10.3); Carbon Dioxide 22 mEq/L (23-29); Chloride 108 mEq/L (98-107); Globulin 2.7 g/dL (2.4-3.5); Glucose 115 mg/dL (70-105); Lipase 30 Units/L (11-82); Osmolality,Calculated 290 (280-300); Potassium 3.4 mEq/L (3.5-5.1); Sodium 140 mEq/L (136-145); Total Protein 6.6 g/dL (6.4-8.9); Troponin I < 0.03 ng/mL (< 0.04)
[2022-02-16] MEDS ORDERED: *HR* LORazepam 1 MG TABLET PO STA (17:53)
[2022-02-16] MEDS ORDERED: Naloxone 0.4 MG/ML INJ IVP PRN (20:01)
[2022-02-16] MEDS ORDERED: Ondansetron ODT 4 MG TAB.RAPDIS SL PRN (20:01)
[2022-02-16] MEDS ORDERED: Melatonin 3 MG TABLET PO PRN (20:01)
[2022-02-16] MEDS ORDERED: Nitroglycerin 0.4 MG TAB.SUBL SL PRN (20:15)
[2022-02-16] MEDS ORDERED: *HR* Labetalol 20 MG/4 ML SYRINGE IVP ONE (20:17)
[2022-02-16] MEDS ORDERED: *HR* LORazepam 1 MG TABLET PO PRN ×2 (21:47)
[2022-02-16] MEDS: Thiamine (B-1) 100 MG in 0.9 % Sodium Chloride 50 ML IVPB SCH (22:41)
[2022-02-17 02:07] LABS: Hematocrit 30.2 % (35.3-44.9); Hemoglobin 9.7 g/dL (11.5-15.4); Mean Corpuscular HGB Conc 32.1 g/dL (31.6-35.5); Mean Corpuscular Hemoglobin 32.2 pg (28.0-33.3); Mean Corpuscular Volume 100.3 fL (83.0-100.0); Mean Platelet Volume 9.3 fL (9.4-12.4); Platelet Count 242 K/mcL (140-400); Red Blood Count 3.01 M/mcL (3.82-4.97); Red Cell Distribution Width 12.4 % (11.5-14.5); White Blood Count 5.5 K/mcL (4.3-11.1)
[2022-02-17 02:29] LABS: BUN/Creatinine Ratio 9 (6-26); Blood Urea Nitrogen 11 mg/dL (8-23); Calcium 8.2 mg/dL (8.6-10.3); Carbon Dioxide 23 mEq/L (23-29); Chloride 110 mEq/L (98-107); Glucose 108 mg/dL (70-105); Magnesium 1.4 mg/dL (1.6-2.6); Osmolality,Calculated 292 (280-300); Phosphorous 3.1 mg/dL (2.7-4.5); Potassium 3.5 mEq/L (3.5-5.1); Sodium 141 mEq/L (136-145)
[2022-02-17 02:31] LABS: Troponin I < 0.03 ng/mL (< 0.04)
[2022-02-17] MEDS ORDERED: *HR* Heparin 5,000 UNIT/ML VIAL SQ SCH ×2 (06:00→14:00)
[2022-02-17] MEDS ORDERED: Regadenoson 0.4 MG/5 ML SYRINGE IVP ONE (06:36)
[2022-02-17] MEDS ORDERED: carvediloL 6.25 MG TABLET PO SCH (08:00)
[2022-02-17] MEDS: Aspirin 81 MG TAB.CHEW PO SCH (09:57)
[2022-02-17] MEDS: Folic Acid 1 MG TABLET PO SCH (09:57)
[2022-02-17] MEDS: Magnesium Oxide 400 MG TABLET PO SCH (09:58)
[2022-02-17] MEDS: Thiamine (B-1) 100 MG in 0.9 % Sodium Chloride 50 ML IVPB SCH (10:26)
[2022-02-17] MEDS ORDERED: *HR* Heparin 5,000 UNIT/ML VIAL IVP ONE (12:21)
[2022-02-17] MEDS ORDERED: *HR* Heparin 5,000 UNIT/ML VIAL IVP PRN ×2 (12:21)
[2022-02-17] MEDS: Heparin 25,000UNIT/250ML 1/2NS 25,000 UNIT/250 ML IV.SOLN IVC SCH (13:28)
[2022-02-17] MEDS: *HR* LORazepam 1 MG TABLET PO PRN (13:29)
[2022-02-17 14:06] LABS: Hematocrit 33.6 % (35.3-44.9); Hemoglobin 10.5 g/dL (11.5-15.4); Mean Corpuscular HGB Conc 31.3 g/dL (31.6-35.5); Mean Corpuscular Hemoglobin 31.5 pg (28.0-33.3); Mean Corpuscular Volume 100.9 fL (83.0-100.0); Mean Platelet Volume 9.4 fL (9.4-12.4); Platelet Count 290 K/mcL (140-400); Red Blood Count 3.33 M/mcL (3.82-4.97); Red Cell Distribution Width 12.7 % (11.5-14.5); White Blood Count 5.5 K/mcL (4.3-11.1)
[2022-02-17 14:25] LABS: Heparin anti-factor XA UFH 0.88 IU/mL (0.30-0.70)
[2022-02-17 14:26] LABS: Prothrombin Time 11.4 Seconds (9.4-12.1)
[2022-02-17] MEDS: carvediloL 6.25 MG TABLET PO SCH (21:14)
[2022-02-18 04:30] LABS: Basophils # 0.1 K/mcL (0.0-0.2); Basophils % 1.1 %; Eosinophils # 0.3 K/mcL (0.0-0.6); Eosinophils % 6.3 %; Hematocrit 32.4 % (35.3-44.9); Hemoglobin 9.9 g/dL (11.5-15.4); Immature Granulocytes % 0.6 % (0-4); Lymphocytes # 1.4 K/mcL (0.6-4.6); Lymphocytes % 28.4 %; Mean Corpuscular HGB Conc 30.6 g/dL (31.6-35.5); Mean Corpuscular Hemoglobin 31.6 pg (28.0-33.3); Mean Corpuscular Volume 103.5 fL (83.0-100.0); Mean Platelet Volume 9.3 fL (9.4-12.4); Monocytes # 0.6 K/mcL (0.0-1.3); Monocytes % 12.4 %; Neutrophils # 2.4 K/mcL (1.6-8.9); Platelet Count 258 K/mcL (140-400); Red Blood Count 3.13 M/mcL (3.82-4.97); Red Cell Distribution Width 12.8 % (11.5-14.5); Segmented Neutrophils % 51.2 %; White Blood Count 4.8 K/mcL (4.3-11.1)
[2022-02-18 04:49] LABS: Calcium 8.3 mg/dL (8.6-10.3); Potassium 3.9 mEq/L (3.5-5.1)
[2022-02-18] MEDS ORDERED: 0.9 % Sodium Chloride 1,000 ML IVC SCH (07:30)
[2022-02-18] MEDS: Magnesium Oxide 400 MG TABLET PO SCH (09:26)
[2022-02-18] MEDS: Aspirin 81 MG TAB.CHEW PO SCH (09:26)
[2022-02-18] MEDS: Folic Acid 1 MG TABLET PO SCH (09:27)
[2022-02-18] MEDS: carvediloL 6.25 MG TABLET PO SCH ×2 (09:29→17:49)
[2022-02-18] MEDS: Thiamine (B-1) 100 MG in 0.9 % Sodium Chloride 50 ML IVPB SCH (11:48)
[2022-02-18] MEDS: *HR* LORazepam 1 MG TABLET PO PRN (12:15)
[2022-02-18] MEDS ORDERED: 0.9 % Sodium Chloride 2,000 ML ONE (13:50)
[2022-02-18] MEDS ORDERED: Iopamidol - 370 200 ML INFUS..BTL ONE (13:50)
[2022-02-18] MEDS ORDERED: Heparin 1,000 UNITS/500 mL 500 ML ONE (13:50)
[2022-02-18] MEDS ORDERED: *HR* Heparin 10,000 UNIT/10 ML VIAL ONE (13:50)
[2022-02-18] MEDS ORDERED: Nitroglycerin 1,000 MCG/5 ML VIAL IV ONE (14:01)
[2022-02-18] MEDS ORDERED: *HR* Midazolam HCl 2 MG/2 ML VIAL ONE (14:19)
[2022-02-18] MEDS ORDERED: *HR* FentaNYL (PF) 100 MCG/2 ML VIAL ONE (14:19)
[2022-02-18] MEDS: Heparin 25,000UNIT/250ML 1/2NS 25,000 UNIT/250 ML IV.SOLN IVC SCH (15:33)
[2022-02-18] MEDS: amLODIPine 5 MG TABLET PO SCH (17:49)
[2022-02-19 02:11] LABS: Basophils # 0.1 K/mcL (0.0-0.2); Basophils % 0.9 %; Eosinophils # 0.3 K/mcL (0.0-0.6); Eosinophils % 5.3 %; Hematocrit 31.9 % (35.3-44.9); Hemoglobin 9.8 g/dL (11.5-15.4); Immature Granulocytes % 0.4 % (0-4); Lymphocytes # 1.2 K/mcL (0.6-4.6); Lymphocytes % 23.3 %; Mean Corpuscular HGB Conc 30.7 g/dL (31.6-35.5); Mean Corpuscular Hemoglobin 31.5 pg (28.0-33.3); Mean Corpuscular Volume 102.6 fL (83.0-100.0); Mean Platelet Volume 9.4 fL (9.4-12.4); Monocytes # 0.6 K/mcL (0.0-1.3); Monocytes % 11.6 %; Neutrophils # 3.1 K/mcL (1.6-8.9); Platelet Count 268 K/mcL (140-400); Red Blood Count 3.11 M/mcL (3.82-4.97); Red Cell Distribution Width 12.8 % (11.5-14.5); Segmented Neutrophils % 58.5 %; White Blood Count 5.3 K/mcL (4.3-11.1)
[2022-02-19 02:31] LABS: Calcium 8.2 mg/dL (8.6-10.3); Potassium 3.8 mEq/L (3.5-5.1)
[2022-02-19] MEDS: Magnesium Oxide 400 MG TABLET PO SCH (09:30)
[2022-02-19] MEDS: amLODIPine 5 MG TABLET PO SCH (09:30)
[2022-02-19] MEDS: Aspirin 81 MG TAB.CHEW PO SCH (09:30)
[2022-02-19] MEDS: Folic Acid 1 MG TABLET PO SCH (09:31)
[2022-02-19] MEDS: carvediloL 6.25 MG TABLET PO SCH (09:31)
[2022-02-19] MEDS: Thiamine (B-1) 100 MG in 0.9 % Sodium Chloride 50 ML IVPB SCH (09:43)
[2022-02-19 11:41] VITALS: BP 144/77; PULSE 67; TEMP 98; O2SAT 96
== END 2022-02-19 13:15 | disposition home or self-care (01) | DRG 287 ==
LOC: 2ANU 14:36 → EMEROOARM 14:36 → SUATTDRO 20:19 → 2ANU 21:16 → SUATTDRO 02-18 15:14
PROVIDERS: ADMIT Internal Medicine; ATTEND Internal Medicine